=== PATIENT | male | born 1980 ===

== ENCOUNTER 2017-10-26 06:03 | Day surgery (SDC) | payer OTHER ==
[~2017-10-26 06:03] MED LIST: SYNTHROID75 MCG PO
[2017-10-26] MEDS ORDERED: PERCOCET 5-3251 EACH PO (09:49)
[2017-10-26] MEDS ORDERED: RECTICARE30 GM TOP (09:49)
== END 2017-10-26 13:33 | disposition home or self-care (01) ==
LOC: CIR.AMB 06:03
DX: K60.1 Chronic anal fissure (principal)

== ENCOUNTER → 2021-03-12 | Day surgery (SDC) | payer OTHER ==
[~2021-03-12] MED LIST changes: +PERCOCET 5-3251 EACH PO; +RECTICARE30 GM TOP
== END | disposition home or self-care (01) ==
LOC: ADM 03-05 14:30 → AMB-ENDOS 11:00
PROVIDERS: ATTEND Surgery
DX: K62.89 Other specified diseases of anus and rectum (principal); K64.8 Other hemorrhoids; Z20.822 Contact with and (suspected) exposure to COVID-19